=== PATIENT | male | born 1995 | race Caucasian/White ===

== ENCOUNTER 2022-12-11 21:35 | Inpatient (IN) | payer MEDICAID ==
[~2022-12-11] VITALS: Ht 180.3 cm; Wt 86.2 kg
--- NOTE | 2022-12-11 21:49 | NUR ---
[id number] FOR L ELBOW INJURY S/P PLAYING BASKETBALL +DEFORMITY -HEADTRAUMA. PT A/OX4. TOLERATING R/A WELL WITH NO RESP DISTRESS. CONNECTED PT TO POX AND MONITOR. SAFETY MEASURES IN PLACE.
[2022-12-11] MEDS ORDERED: FENTANYL PF 100MCG/2ML AMPUL ONE ×2 (21:57→22:51)
[2022-12-11] MEDS ORDERED: FENTANYL PF 100MCG/2ML AMPUL IV ONE (22:00)
--- NOTE | 2022-12-11 22:01 | NUR ---
SERVICES ACCOUNT MANAGER AT PT'S BEDSIDE
--- NOTE | 2022-12-11 22:11 | NUR ---
DR. HUDDLESTON ON THE PHONE WITH DR. DODD FOR ORTHO CONSULT
--- NOTE | 2022-12-11 22:18 | NUR ---
PT SIGNED CONSENT FORM FOR LEFT ELBOW REDUCTION UNDER CONSCIOUS MODERATE SEDATION
[2022-12-11] MEDS ORDERED: PROPOFOL 20 ML IV ONE (22:20)
[2022-12-11] MEDS ORDERED: PROPOFOL 200 MG/20 ML VIAL IV ONE (22:30)
[2022-12-11] MEDS ORDERED: ETOMIDATE 2 MG/ML VIAL ONE (22:40)
--- NOTE | 2022-12-11 22:50 | NUR ---
AIR ANTISUBMARINE OFFICER AT PT'S BEDSIDE
--- NOTE | 2022-12-11 22:55 | NUR ---
LEFT ELBOW REDUCTION UNDER CONSCIOUS MODERATE SEDATION; DR. JU GAVIRIA, EMT, MD, RT AT PT'S BEDSIDE. LAC TO LEFT ELBOW NOTED. PT ON O2 2LPM VIA N/C 2233 ADMINISTERED PROPOFOL 90 MG IVP 2235 ADMINISTERED PROPOFOL 45 MG IVP 2237 ADMINISTERED PROPOFOL 45 MG IVP 2244 ADMINISTERED ETOMIDATE 10MG IVP 2244 ADMINISTERED ETOMIDATE 5MG IVP 2 2244 ADMINISTERED FENTANYL 100MG IVP 2252 ADMINISTERED ETOMIDATE 10MG IVP PT STILL AWAKE; AND ALERT. NOT ABLE TO TO DO PROCEDURE. PT REFUSED TO PUT LEFT ARM IN SLING; EDUCATED PT.
--- NOTE | 2022-12-11 23:00 | NUR ---
DR. MARCIANO GAVIRIA ON PHONE CALL [facility] DR. FLAQUITO ESPINOSA
[2022-12-11] MEDS ORDERED: TDAP [DIPH/PERTUSSIS/TET] 0.5 ML VIAL IM ONE ×2 (23:19→23:30)
[2022-12-11] MEDS ORDERED: HYDROMORPHONE 1 MG/1 ML DISP.SYRIN ONE ×2 (23:19→23:52)
--- NOTE | 2022-12-11 23:26 | NUR ---
covid swab done and sent to lab
[2022-12-11] MEDS ORDERED: HYDROMORPHONE 1 MG/1 ML DISP.SYRIN IV ONE (23:30)
[2022-12-11 23:33] LABS: BASOPHILS % (AUTO) 0.2 % (0.0-2.0); HEMATOCRIT 45 % (39-51); HEMOGLOBIN 14.8 g/dL (13.5-17.5); LYMPHOCYTES # (AUTO) 0.9 K/uL (0.8-4.8); LYMPHOCYTES % (AUTO) 6.8 % (20.0-44.0); MEAN CORPUSCULAR HGB CONC 33 g/dl (31.0-36.0); MEAN CORPUSCULAR VOLUME 94 fL (80-96); MONOCYTES # (AUTO) 0.7 K/uL (0.1-1.30); MONOCYTES % (AUTO) 5.4 % (2.0-12.0); NEUTROPHILS # (AUTO) 10.9 K/uL (1.8-8.9); NEUTROPHILS % (AUTO) 87.6 % (43.0-81.0); PLATELET COUNT (AUTO) 172 K/uL (150-450); RED BLOOD CELL COUNT(AUTO) 4.74 MIL/uL (4.5-6.0); WHITE BLOOD COUNT (AUTO) 12.5 K/uL (4.3-11.0)
[2022-12-11 23:40] LABS: CALCIUM, SERUM 8.7 mg/dL (8.5-10.1); CREATININE 1.5 mg/dL (0.6-1.3); POTASSIUM 3.8 mmol/L (3.5-5.1)
[2022-12-12] MEDS ORDERED: PROPOFOL 200 MG/20 ML VIAL IV ONE
[2022-12-12] MEDS ORDERED: ETOMIDATE 2 MG/ML VIAL IV ONE ×2
[2022-12-12] MEDS ORDERED: HYDROMORPHONE 1 MG/1 ML DISP.SYRIN IV ONE
[2022-12-12] MEDS ORDERED: LORAZEPAM INJ 2 MG/ML VIAL IV PRN (00:30)
[2022-12-12] MEDS: ENOXAPARIN SODIUM 40 MG/0.4 ML DISP.SYRIN SQ SCH ×2 (00:30→22:00)
[2022-12-12] MEDS ORDERED: ONDANSETRON HCL/PF 4 MG/2 ML VIAL IVP PRN (00:30)
[2022-12-12] MEDS ORDERED: HYDROMORPHONE INJ 2 MG/ML DISP.SYRIN IV PRN (00:30)
[2022-12-12] MEDS ORDERED: Z GUARD REMEDY 4 OZ OINT TP PRN (00:30)
--- NOTE | 2022-12-12 00:44 | NUR ---
PT IS GOING TO UNIT ON [place] WITH WOOD ENGRAVER AND RN AT BEDSIDE. PT IS IN STABLE CONDITION
--- NOTE | 2022-12-12 00:44 | NUR ---
REPORT GIVEN TO JEREMÍAS FAROOQ FOR [place]
[2022-12-12 00:45] VITALS: BP 145/65
--- NOTE | 2022-12-12 00:45 | NUR ---
MS BENEFITS MANAGER NOTE RECEIVED REPORT FROM ER NURSE WADE. PATIENT IS BEING ADMITTED IN ROOM 313-1 FOR POSTERIOR DISLOCATION OF LEFT ELBOW JOINT. PATIENT IS A/O X4, ABLE TO MAKE NEEDS KNOWN. ON ROOM AIR, AND TOLERATING ROOM AIR WELL. SKIN ASSESSMENT COMPLETED, BUT PT DID NOT ALLOW FULL SKIN ASSESSMENT DUE TO PAIN. BELONGINGS CHECKED, AND BELONGING LIST PLACED IN CHART.HAS WOUND TO LEFT ELBOW, WITH EDEMA, AND SCRATCH TO RIGHT ELBOW. PICTURES TAKEN, AND PLACED IN CHART. PT IS SCHEDULED FOR CLOSED REDUCTION OF LEFT ELBOW. PT NPO. IV ACCESS TO RIGHT AC 18G INFUSING NS AT 125 ML/HR. SAFETY MEASURES IN PLACE: BED LOCKED IN LOW POSITION, SIDE RAILS UP X2, CALL LIGHT WITHIN REACH. WILL CONTINUE TO MONITOR PT.
--- NOTE | 2022-12-12 01:45 | NUR ---
MS RN NOTE PT IS COMPLAINING OF EXTREME PAIN TO LEFT ELBOW DUE TO FRACTURE. PT WAS GIVEN DILAUDID 1 MG Q4HRS PRN AT 0000 IN ER. PT IS REQUESTING ANOTHER DOSE OF DILAUDID 1 MG. BETH BLANTON IS CALLED, AND MADE AWARE. BETH BLANTON STATES NOT TO GIVE PT ANOTHER DOSE OF DILAUDID, BUT TO CHANGE DILAUDID ORDER TO Q 3HRS PRN. ORDER RECEIVED CARRIED OUT, AND IMPLEMENTED.
[2022-12-12] MEDS: IV NS 0.9% 1,000 ML IV PRN ×2 (01:58→20:49)
[2022-12-12] MEDS: HYDROMORPHONE INJ 2 MG/ML DISP.SYRIN IV PRN ×2 (03:11→06:09)
[2022-12-12] MEDS ORDERED: CEFTRIAXONE 1 G in IV D5W 50 ML IV STA (05:16)
[2022-12-12] MEDS ORDERED: CEFTRIAXONE 1 G VIAL ONE (05:34)
--- NOTE | 2022-12-12 07:02 | NUR ---
MS RN CLOSING NOTE LEFT PT IN BED, AWAKE. NO RESPIRATORY DISTRESS NOTED. IV ACCESS TO RIGHT AC 18G, PATENT, AND INTACT, RUNNING NS AT 75 ML/HR. PT IS SCHEDULED FOR CLOSED REDUCTION OF LEFT ELBOW THIS MORNING. CONSENT SIGNED, AND PLACED IN CHART. CHECKED LIST COMPLETED. SAFETY MEASURES IN PLACE: BED IN LOW POSITION, CALL LIGHT WITHIN REACH, SR UP X2. WILL ENDORSE TO AM SHIFT NURSE FOR [place].
--- NOTE | 2022-12-12 07:30 | NUR ---
PT RECEIVED RESTING COMFORTABLY IN BED. NO S/S OR C/O PAIN OR DISTRESS NOTED. SIDE RAILS UP X2, CALL LIGHT LEFT WITHIN REACH. WILL CONTINUE PLAN OF CARE.
[2022-12-12 08:00] VITALS: BP 145/105
[2022-12-12] MEDS ORDERED: PANTOPRAZOLE 40 MG VIAL IV SCH (09:00)
[2022-12-12] MEDS ORDERED: ANESTHESIA TRAY IN PYXIS 1 EA TRAY MC ONE (09:21)
[2022-12-12] MEDS ORDERED: BUPIVACAINE 0.5 % PF 150 MG/30 ML VIAL ONE (09:22)
[2022-12-12] MEDS ORDERED: LIDOCAINE 1% INJ 50 ML MDV IJ ONE (09:22)
[2022-12-12] MEDS ORDERED: FENTANYL PF 100MCG/2ML AMPUL ONE (09:38)
[2022-12-12] MEDS ORDERED: SUCCINYLCHOLINE CHLORIDE 20 MG/ML VIAL ONE (09:40)
[2022-12-12] MEDS ORDERED: MIDAZOLAM HCL 2 MG/2ML VIAL ONE (09:40)
[2022-12-12 09:55] VITALS: BP 145/105
[2022-12-12] MEDS ORDERED: HYDROMORPHONE 1 MG/1 ML DISP.SYRIN ONE (10:53)
[2022-12-12 13:44] LABS: BASOPHILS % (AUTO) 0.2 % (0.0-2.0); EOSINOPHILS % (AUTO) 0.2 % (0.0-6.0); HEMATOCRIT 42 % (39-51); HEMOGLOBIN 13.9 g/dL (13.5-17.5); LYMPHOCYTES # (AUTO) 1.5 K/uL (0.8-4.8); LYMPHOCYTES % (AUTO) 18.8 % (20.0-44.0); MEAN CORPUSCULAR HGB CONC 33 g/dl (31.0-36.0); MEAN CORPUSCULAR VOLUME 94 fL (80-96); MONOCYTES # (AUTO) 0.7 K/uL (0.1-1.30); MONOCYTES % (AUTO) 8.8 % (2.0-12.0); NEUTROPHILS # (AUTO) 5.9 K/uL (1.8-8.9); PLATELET COUNT (AUTO) 156 K/uL (150-450); RED BLOOD CELL COUNT(AUTO) 4.44 MIL/uL (4.5-6.0); WHITE BLOOD COUNT (AUTO) 8.2 K/uL (4.3-11.0)
[2022-12-12 13:56] LABS: CALCIUM, SERUM 8.1 mg/dL (8.5-10.1); CREATININE 1.1 mg/dL (0.6-1.3); POTASSIUM 3.5 mmol/L (3.5-5.1)
[2022-12-12] MEDS: HYDROMORPHONE 1 MG/1 ML DISP.SYRIN IV PRN ×3 (14:31→20:41)
[2022-12-12 16:00] VITALS: BP 149/92
--- NOTE | 2022-12-12 18:49 | NUR ---
CHANGE OF SHIFT REPORT PT RESTING COMFORTABLY IN BED. NO S/S OR C/O PAIN OR DISTRESS NOTED. SIDE RAILS UP X2, CALL LIGHT LEFT WITHIN REACH. WILL CONTINUE PLAN OF CARE.
--- NOTE | 2022-12-12 20:30 | NUR ---
MS RN OPENING NOTE PATIENT AWAKE IN ROOM ALERT/ORIENTED X 4, PT ABLE TO MAKE NEEDS KNOWN. PATIENT STABLE ON RA, NO S/S OF DISTRESS OR SOB NOTED, BREATHING EVEN AND UNLABORED. IV ACCESS ON RAC #18G INTACT AND SALINE LOCKED, PT REFUSING IVF AT THIS TIME BECAUSE IV PUMP BEEPS EVERY TIME HE BENDS HIS ARM, PATIENT DRINKING PLENTY OF FLUIDS. PATIENT WANTING TO GO HOME, CLEARED BY DR. NASCIMENTO'S PER DAYSHIDARELL RN, HOWEVER NO DISCHARGE ORDER OR PRESCRIPTIONS FOR PATIENT YET. NOTIFIED NOTEMAN MD MCMAHON WHO STATED THAT PATIENT CAN BE DISCHARGED UNTIL TOMORROW BY DAYSADITHYA GAVIRIA. EXPLAINED TO PATIENT AND PATIENT VERBALIZED UNDERSTANDING. LEFT ARM IN SLING S/P INTERNAL FIXATION THIS AM. PATIENT C/O PAIN, WILL ADMINISTER DILAUDID 1 MG WHEN DUE, PROVIDED ICE BAG IN THE MEAN TIME. SAFETY MEASURES IN PLACE: CALL LIGHT WITHIN REACH, SIDE RAILS UP X 2, BED LOCKED IN LOWEST POSITION, HOB ELEVATED, BED ALARM ON. WILL CONTINUE TO MONITOR PATIENT
[2022-12-12] MEDS ORDERED: HYDR-3980 PO (22:50)
--- NOTE | 2022-12-12 23:30 | NUR ---
MS RN NOTE DR. SHAN CORDERO PRESENT ON FLOOR, PLACED DISCHARGE ORDER FOR PATIENT AND ELECTRONICALLY SENT PAIN MEDICATION PRESCRIPTION TO PHARMACY. DISCHARGE PAPERS PREPARED AND EXPLAINED TO PATIENT, EXPLAINED MEDICATIONS AND PHARMACY LOCATION, GAVE PATIENT INFORMATION TO DR. NASCIMENTO'S OFFICE TO F/U IN ONE WEEK, PATIENT VERBALIZED UNDERSTANDING AND SIGNED DISCHARGE PAPERS. AWAITING PATIENT'S FRIEND TO COME COLLECTOR OF PORT PATIENT. WILL CONTINUE TO MONITOR
--- NOTE | 2022-12-13 00:03 | NUR ---
MS FIRST LINE PRODUCTION SUPERVISOR NOTE PATIENT DISCHARGED, PICKED UP BY FRIEND VIA PRIVATE CAR. PATIENT ALERT/ORIENTED X 4, PT ABLE TO MAKE NEEDS KNOWN. PATIENT STABLE ON RA, NO S/S OF DISTRESS RO SOB NOTED, BREATHING EVEN AND UNLABORED. PATIENT IV ACCESS REMOVED AND ID BAND REMOVED. DISCHARGE PAPERS EXPLAINED TO PATIENT, ALL BELONGINGS TAKEN WITH PATIENT. WHEELED PATIENT DOWN IN WHEELCHAIR TO ER ENTRANCE AND ASSISTED TO CAR
[2022-12-16] MEDS ORDERED: OXYC-133 PO (16:40)
== END 2022-12-13 00:05 | disposition home or self-care (01) | DRG 342 ==
LOC: ER 21:39 → EDBD 21:39 → MED 12-12 00:33
PROVIDERS: ADMIT Nurse Practitioner Acute Care; ATTEND Nurse Practitioner Acute Care
PROC: 0RSMXZZ Reposition Left Elbow Joint, External Approach (ICD-10-PCS; principal; 2022-12-12)
DX: S53.125A Posterior dislocation of left ulnohumeral joint, initial encounter (principal); N17.0 Acute kidney failure with tubular necrosis; Z20.822 Contact with and (suspected) exposure to COVID-19; W01.0XXA Fall on same level from slipping, tripping and stumbling without subsequent striking against object, initial encounter; Y93.67 Activity, basketball; Y92.39 Other specified sports and athletic area as the place of occurrence of the external cause; S52.122A Displaced fracture of head of left radius, initial encounter for closed fracture; E87.1 Hypo-osmolality and hyponatremia
CPT/HCPCS: 36415; 73070-TC; 73080-TC; 80048-TC; 85025-TC; 85730-TC; 87081-TC; 90715; A4565; C9113; C9803; G0378; J0330; J0696; J1170; J2250; J2405; J2704; J2765; J3010; J3490; J7030; J7060

== ENCOUNTER 2022-12-14 17:11 | Inpatient (IN) | payer MEDICAID ==
[~2022-12-14] VITALS: Ht 180.3 cm; Wt 89.8 kg
[~2022-12-14 17:11] MED LIST: HYDR-3980 PO
--- NOTE | 2022-12-14 17:55 | NUR ---
C/O LEFT ELBOW PAIN 08/09 S/P "SURGERY DONE HERE YESTERDAY".
[2022-12-14] MEDS ORDERED: HYDROMORPHONE 1 MG/1 ML DISP.SYRIN IV ONE ×2 (18:00→21:00)
[2022-12-14] MEDS ORDERED: HYDROMORPHONE 1 MG/1 ML DISP.SYRIN ONE ×2 (18:37→20:49)
[2022-12-14] MEDS ORDERED: ONDANSETRON HCL/PF 4 MG/2 ML VIAL ONE ×2 (18:37→23:10)
[2022-12-14 18:51] LABS: C-REACTIVE PROTEIN 5.6 mg/dL (0.0-0.9)
[2022-12-14 18:54] LABS: CALCIUM, SERUM 8.8 mg/dL (8.5-10.1); POTASSIUM 3.9 mmol/L (3.5-5.1)
[2022-12-14] MEDS ORDERED: ONDANSETRON HCL/PF 4 MG/2 ML VIAL IV ONE ×2 (19:00→23:00)
[2022-12-14 20:12] LABS: BASOPHILS % (AUTO) 0.5 % (0.0-2.0); EOSINOPHILS % (AUTO) 1.2 % (0.0-6.0); HEMATOCRIT 43 % (39-51); HEMOGLOBIN 14.7 g/dL (13.5-17.5); LYMPHOCYTES # (AUTO) 1.5 K/uL (0.8-4.8); LYMPHOCYTES % (AUTO) 25.4 % (20.0-44.0); MEAN CORPUSCULAR HGB CONC 34 g/dl (31.0-36.0); MEAN CORPUSCULAR VOLUME 93 fL (80-96); MONOCYTES # (AUTO) 0.6 K/uL (0.1-1.30); MONOCYTES % (AUTO) 10.3 % (2.0-12.0); NEUTROPHILS # (AUTO) 3.8 K/uL (1.8-8.9); NEUTROPHILS % (AUTO) 62.6 % (43.0-81.0); PLATELET COUNT (AUTO) 184 K/uL (150-450); RED BLOOD CELL COUNT(AUTO) 4.66 MIL/uL (4.5-6.0); WHITE BLOOD COUNT (AUTO) 6.1 K/uL (4.3-11.0)
--- NOTE | 2022-12-14 21:14 | NUR ---
[facility]ED [facility]. DR CELESTE NOT COVER DRISS TODD.
--- NOTE | 2022-12-14 21:25 | NUR ---
DR DE DIOS ON THE PHONE WITH DR CARUSO FOR ORTHO CONSULT
--- NOTE | 2022-12-14 21:39 | NUR ---
COVID SWAB COLLECTED
[2022-12-14] MEDS ORDERED: Z GUARD REMEDY 4 OZ OINT TP PRN (22:30)
[2022-12-14] MEDS ORDERED: ONDANSETRON HCL/PF 4 MG/2 ML VIAL IVP PRN (22:30)
[2022-12-14] MEDS ORDERED: ZOLPIDEM TARTRATE 5 MG TABLET PO PRN (22:30)
[2022-12-14] MEDS ORDERED: ACETAMINOPHEN 325 MG TABLET PO PRN (22:30)
--- NOTE | 2022-12-14 22:37 | NUR ---
DR DE DIOS ON THE PHONE WITH DR CARUSO
[2022-12-14] MEDS ORDERED: CEFAZOLIN 2 GM in IV D5W 100 ML IV ONE (23:00)
[2022-12-14] MEDS ORDERED: HYDROMORPHONE INJ 2 MG/ML DISP.SYRIN IV ONE (23:00)
[2022-12-14] MEDS ORDERED: HYDROMORPHONE INJ 2 MG/ML DISP.SYRIN ONE (23:10)
--- NOTE | 2022-12-15 | NUR ---
ENCEF NOT AVAILABLE, MD MADE AWARE. AWAITING NEW MD ORDERS
--- NOTE | 2022-12-15 00:12 | NUR ---
BETTY GARCIA AT [facility] AND FAXED THE CLINICALS TO [phone] PH: [phone]
[2022-12-15] MEDS ORDERED: CEFTRIAXONE 1GM BAG (ER ONLY) 1 GM/50 ML PIGGYBACK IV ONE (00:30)
[2022-12-15] MEDS ORDERED: KETOROLAC TROMETHAMINE INJ 30 MG/ML VIAL IV ONE (00:30)
[2022-12-15] MEDS ORDERED: CEFTRIAXONE 1GM BAG (ER ONLY) 100 ML IV ONE (01:01)
[2022-12-15] MEDS ORDERED: KETOROLAC TROMETHAMINE 15 MG/ML VIAL ONE (01:01)
[2022-12-15] MEDS ORDERED: HYDROMORPHONE 1 MG/1 ML DISP.SYRIN IV ONE (01:30)
--- NOTE | 2022-12-15 01:32 | NUR ---
SPOKE TO LEANDER SHER AT [facility]. RYANDONNELL FOR DR THORPE'S CALL BACK
--- NOTE | 2022-12-15 02:00 | NUR ---
DR CASTLE SPOKE TO DR MARIE, ORTHO AT [facility]. DR MARIE DID NOT ACCEPT THE PT
--- NOTE | 2022-12-15 02:41 | NUR ---
PER [facility] INTAKE THEY'RE AT [facility]
[2022-12-15] MEDS ORDERED: HYDROMORPHONE 1 MG/1 ML DISP.SYRIN ONE ×2 (03:12→06:49)
[2022-12-15 05:03] LABS: BASOPHILS % (AUTO) 0.7 % (0.0-2.0); EOSINOPHILS % (AUTO) 1.4 % (0.0-6.0); HEMATOCRIT 43 % (39-51); HEMOGLOBIN 14.7 g/dL (13.5-17.5); LYMPHOCYTES % (AUTO) 30.6 % (20.0-44.0); MEAN CORPUSCULAR HGB CONC 34 g/dl (31.0-36.0); MEAN CORPUSCULAR VOLUME 94 fL (80-96); MONOCYTES # (AUTO) 0.7 K/uL (0.1-1.30); MONOCYTES % (AUTO) 10.1 % (2.0-12.0); NEUTROPHILS # (AUTO) 3.7 K/uL (1.8-8.9); NEUTROPHILS % (AUTO) 57.2 % (43.0-81.0); PLATELET COUNT (AUTO) 174 K/uL (150-450); RED BLOOD CELL COUNT(AUTO) 4.59 MIL/uL (4.5-6.0); WHITE BLOOD COUNT (AUTO) 6.5 K/uL (4.3-11.0)
[2022-12-15 05:35] LABS: CALCIUM, SERUM 8.6 mg/dL (8.5-10.1); CREATININE 1.2 mg/dL (0.6-1.3); POTASSIUM 3.7 mmol/L (3.5-5.1)
--- NOTE | 2022-12-15 05:44 | NUR ---
PER [facility] "THEY'RE STILL WORKING ON IT"
[2022-12-15] MEDS ORDERED: HYDROMORPHONE INJ 2 MG/ML DISP.SYRIN IV ONE (07:00)
--- NOTE | 2022-12-15 07:09 | NUR ---
PER [facility] PT DOES NOT QUALIFY FOR ADMISSION REQUIREMENTS
[2022-12-15] MEDS ORDERED: HYDROCODONE/APAP 5/325MG TABLET ONE ×2 (09:27→16:47)
--- NOTE | 2022-12-15 09:30 | NUR ---
NORCO PO GIVEN TO PT AT THIS TIME FOR C/O PAIN 05/09, LUCIANA WELL.
[2022-12-15] MEDS: HYDROCODONE/APAP 5/325MG TABLET PO PRN ×3 (09:32→22:14)
[2022-12-15] MEDS ORDERED: MORPHINE SULFATE INJ 2 MG/ML DISP.SYRIN ONE (12:08)
[2022-12-15] MEDS: MORPHINE SULFATE INJ 2 MG/ML DISP.SYRIN IV PRN ×2 (12:12→18:06)
--- NOTE | 2022-12-15 12:13 | NUR ---
PT C/O L ARM PAIN 07/10, MORPHINE 2MG IV ADMINISTERED INDICATED, LUCIANA WELL
--- NOTE | 2022-12-15 13:58 | NUR ---
TAMMY NATHAN FROM [facility]TH[facility] SPEAKING WITH DR. PEACE.
--- NOTE | 2022-12-15 14:30 | NUR ---
PT RESTING IN BED W/ EYES CLOSED, ABLE TO BE AWAKENED. NOT IN ACUTE DISTRESS.
--- NOTE | 2022-12-15 16:58 | NUR ---
GOT BED 119-2 ADMITTING INFORMED.
--- NOTE | 2022-12-15 17:20 | NUR ---
PT REPORT GIVEN TO JEREMÍAS GUSMAN
--- NOTE | 2022-12-15 17:26 | NUR ---
PT TRANSFERRED TO [facility] VIA GURNEY. WARM HANDOFF GIVEN TO JEREMÍAS GUSMAN.
--- NOTE | 2022-12-15 17:45 | NUR ---
received pt. from ER VIA [id number]-[id number] awake alert.call light at reach.family at bedside.
[2022-12-15 18:22] VITALS: BP 131/86
--- NOTE | 2022-12-15 19:30 | NUR ---
MS RN OPENING NOTE RECEIVED PATIENT IN BED, AWAKE, ALERT AND ORIENTED. ABLE TO COMMUNICATE NEEDS WITH THE STAFFS. AFEBRILE AND NOT IN ANY FORM OF ACUTE DISTRESS. BREATHING EVEN AND NON LABORED. LUNG SOUND CLEAR ON AUSCULTATION. WITH SLING AND IMMOBILIZER ON L ARM, NOTED WITH GOOD SKIN INTEGRITY AND CIRCULATION IN THE AREA. WITH IV ACCESS ON R UPPER ARM 20G-SL. SAFETY MEASURES IN PLACE. KEPT BED IN LOCKED AND IN LOW POSITION. SIDE RAILS UP X2. ADVISED TO USE THE CALL LIGHT WHEN IN NEED OF ASSISTANCE.
[2022-12-15 20:00] VITALS: BP 130/71
--- NOTE | 2022-12-15 20:50 | NUR ---
MS RN NOTE PATIENT C/O SEVERE L SHOULDER PAIN 07/10. NOTIFIED ELECTROMAGNET CRANE OPERATOR GIL AND ORDERED FOR ONE DOSE OF MORPHINE 2MG IV. ORDER NOTED AND CARRIED OUT.
[2022-12-15] MEDS ORDERED: MORPHINE SULFATE INJ 2 MG/ML DISP.SYRIN IV ONE (21:00)
[2022-12-16] VITALS: BP 137/70
[2022-12-16] MEDS: MORPHINE SULFATE INJ 2 MG/ML DISP.SYRIN IV PRN ×3 (00:18→13:35)
[2022-12-16] MEDS: HYDROCODONE/APAP 5/325MG TABLET PO PRN ×2 (04:22→10:21)
--- NOTE | 2022-12-16 06:30 | NUR ---
MS RN CLOSING NOTE PATIENT IN BED, ASLEEP BUT EASY TO AROUSE AND RESPONSIVE. ABLE TO COMMUNICATE NEEDS WITH THE STAFFS. AFEBRILE AND NOT IN ANY FORM OF ACUTE DISTRESS. BREATHING EVEN AND NON LABORED. LUNG SOUND CLEAR ON AUSCULTATION. WITH SLING AND IMMOBILIZER ON L ARM, NOTED WITH GOOD SKIN INTEGRITY AND CIRCULATION IN THE AREA. WITH IV ACCESS ON R UPPER ARM 20G-SL. MEDICATED ORDERED. SAFETY MEASURES IN PLACE. KEPT BED IN LOCKED AND IN LOW POSITION. SIDE RAILS UP X2. ADVISED TO USE THE CALL LIGHT WHEN IN NEED OF ASSISTANCE. ALL NURSING NEEDS ATTENDED. ENDORSED TO INCOMING SHIFT FOR CONTINUITY OF CARE.
[2022-12-16] MEDS: diphenhydrAMINE HCL ELIX 25 MG/10 ML UDC PO PRN (13:35)
[2022-12-16] MEDS ORDERED: HYDROCODONE/APAP 5/325MG TABLET PO PRN (14:30)
[2022-12-16 14:56] VITALS: BP 137/77
[2022-12-16] MEDS ORDERED: OXYC-133 PO (16:40)
--- NOTE | 2022-12-16 19:00 | NUR ---
PATIENT RECEIVED FROM DAY SHIFT NURSE. AAOX3. VITAL SIGNS STABLE. PATIENT HAD NO COMPLAIN OF PAIN AT THIS TIME. NO SIGNS OF SHORTNESS OF BREATH, NAUSEA OR VOMITING NOTED. PATIENT RESTING COMFORTABLY IN BED. WILL CONTINUE TO MONITOR.
[2022-12-16 20:00] VITALS: BP 123/72
[2022-12-16 22:00] VITALS: BP 123/72
[2022-12-17] MEDS: MORPHINE SULFATE INJ 2 MG/ML DISP.SYRIN IV PRN ×2 (03:54→11:48)
[2022-12-17] MEDS: diphenhydrAMINE HCL ELIX 25 MG/10 ML UDC PO PRN ×2 (03:54→11:47)
[2022-12-17 04:00] VITALS: BP 126/82
--- NOTE | 2022-12-17 07:20 | NUR ---
REPORT GIVEN TO INCOMING NURSE. PATIENT VITAL SIGNS STABLE. PAIN MED AND BENADRYL GIVEN TO PATIENT PER PT REQUEST. PATIENT RESTED WELL LAST NIGHT. PATIENT IN STABLE CONDITION. PATIENT IN BATHROOM URINATING WITH NO SIGNS OF DROWSINESS OR DIZZINESS OR PAIN WITNESS BY INCOMING NURSE. NO SIGNS OF ACUTE DISTRESS NOTED.
[2022-12-17 10:00] VITALS: BP 133/76
--- NOTE | 2022-12-17 11:56 | NUR ---
PATIENT C/O ELBOW PAIN 06/09, MORPHINE 2MG IV, BENADRYL 25MG PO GIVEN ALSO. BP 133/86
--- NOTE | 2022-12-17 12:42 | NUR ---
PATIENT IS DISCHARGE HOME ACCOMPANIED BY HIS FRIENDS, NO C/O PAIN, NO SIGN OF IN DISTRESS, VITAL SIGNS ARE STABLE , BP 133/86, T-98.2, P-83, R-20, UNLABORED BREATHING ON ROOM AIR, IV LINE DISCONTINUE.
--- NOTE | 2022-12-17 12:50 | NUR ---
PATIENT IS AWAKE,ALERT,ORIENTEDX3, VITAL SIGNS ARE STABLE, NO SIGNS OF IN DISTRESS, NO C/O PAIN, BED IN LOW POSITION, SIDE RAILS ARE UPX2, CALL LIGHT WITHIN REACH.
== END 2022-12-17 12:45 | disposition home or self-care (01) | DRG 813 ==
LOC: ER 17:15 → TRANSITION 12-15 09:24 → MEDSG1 12-15 17:00
PROVIDERS: ADMIT Nurse Practitioner Acute Care; ATTEND Internal Medicine
DX: M96.840 Postprocedural hematoma of a musculoskeletal structure following a musculoskeletal system procedure (principal); N17.9 Acute kidney failure, unspecified; Z20.822 Contact with and (suspected) exposure to COVID-19; Y83.8 Other surgical procedures as the cause of abnormal reaction of the patient, or of later complication, without mention of misadventure at the time of the procedure; Y92.009 Unspecified place in unspecified non-institutional (private) residence as the place of occurrence of the external cause; S53.125D Posterior dislocation of left ulnohumeral joint, subsequent encounter; S42.402G Unspecified fracture of lower end of left humerus, subsequent encounter for fracture with delayed healing; W18.39XD Other fall on same level, subsequent encounter
CPT/HCPCS: 36415; 73080-TC; 73206-TC; 80048-TC; 85025-TC; 85652-TC; 85730-TC; 86140-TC; 87081-TC; C9803; G0378; J0690; J0696; J1170; J1885; J2270; J2405; J7060; Q0163